=== PATIENT | female | born 1955 | race Caucasian/White ===

== ENCOUNTER → 2017-02-14 | Outpatient (CLI) | payer BC ==
--- NOTE | 2017-02-15 10:04 | ECHOF ---
Referral Reason:I42.2 Hypertrophic Cardiomyopathy MEASUREMENTS -------- HEIGHT: 139.7 cm WEIGHT: 74.8 kg BP: RVIDd: 2.8 cm (< 3.3) IVSd: 1.1 cm (0.6 - 1.1) LVIDd: 4.0 cm (3.9 - 5.3) LVPWd: 0.8 cm (0.6 - 1.1) IVSs: 1.1 cm LVIDs: 2.8 cm LVPWs: 1.6 cm LA Diam: 3.5 cm (2.7 - 3.8) LAESV Index (A-L): 34.07 ml/m Ao Diam: 3.7 cm (2.0 - 3.7) AV Cusp: 2.3 cm (1.5 - 2.6) LA Diam: 3.9 cm (2.7 - 3.8) MV EXCURSION: 19.132 mm (> 18.000) MV EF SLOPE: 62 mm/s (70 - 150) EPSS: 0.2 cm MV E Arias: 0.59 m/s MV DecT: 249 ms MV A Arias: 0.87 m/s MV E/A Ratio: 0.68 RAP: 5.00 mmHg RVSP: 37.45 mmHg FINDINGS -------- Sinus rhythm. This was a technically good study. There is mild concentric left ventricular hypertrophy. Overall left ventricular systolic function is low-normal with, an EF between 50 - 55 %. The right ventricle is normal in size. LA is moderately dilated 34-39 ml/m2 The right atrial size is normal. There is mild aortic valve sclerosis. There is no evidence of aortic regurgitation. Mild mitral annular calcification present. Mild mitral regurgitation is present. Mild tricuspid regurgitation present. There is mild pulmonary hypertension. The right ventricular systolic pressure, as measured by Doppler, is 37.45mmHg. There is no pulmonic regurgitation present. The aortic root size is normal. There is no pericardial effusion. CONCLUSIONS -------- 1. There is mild concentric left ventricular hypertrophy. 2. Overall left ventricular systolic function is low-normal with, an EF between 50 - 55 %. 3. LA is moderately dilated 34-39 ml/m2 4. There is mild aortic valve sclerosis. 5. Mild mitral annular calcification present. 6. Mild mitral regurgitation is present. 7. Mild tricuspid regurgitation present. 8. There is mild pulmonary hypertension. 9. The right ventricular systolic pressure, as measured by Doppler, is 37.45mmHg. TRANSPORTATION OFFICER: Norma Gordillo RDCS
== END | disposition home or self-care (01) ==
LOC: RADECHMAIN 12:43
PROVIDERS: ATTEND Internal Medicine
DX: I08.3 Combined rheumatic disorders of mitral, aortic and tricuspid valves (principal)
CPT/HCPCS: 93306

== ENCOUNTER → 2017-02-15 | Outpatient (CLI) | payer BC ==
--- NOTE | 2017-02-16 11:31 | MM ---
Reason for exam: screening (asymptomatic). Last mammogram was performed 1 year ago. History: Patient history of other cancer. Family history of breast cancer in mother at age 64. Benign stereotactic core biopsy of the left breast, 2006. Benign ultrasound-guided cyst aspiration of the right breast, December 07, 1998. Cyst aspiration of the right breast. Physical Findings: A clinical breast exam by your physician is recommended on an annual basis and results should be correlated with mammographic findings. MG 3D Screening Mammo W/Cad Bilateral CC and MLO view(s) were taken. Prior study comparison: February 11, 2016, mammogram, performed at [facility]. February 10, 2016, mammogram, performed at [facility]. The breast tissue is heterogeneously dense. This may lower the sensitivity of mammography. Previous mammotome biopsy within the left breast. There is chronic nodularity in the right breast. No significant changes when compared with prior studies. ASSESSMENT: Benign, BI-RAD 2 RECOMMENDATION: Routine screening mammogram of both breasts in 1 year.
== END | disposition home or self-care (01) ==
LOC: RADMAMWWP 09:31
PROVIDERS: ATTEND Internal Medicine
DX: Z12.31 Encounter for screening mammogram for malignant neoplasm of breast (principal)
CPT/HCPCS: 77063; G0202

== ENCOUNTER → 2017-02-28 | Outpatient (CLI) | payer BC ==
--- NOTE | 2017-03-01 08:32 | BD ---
EXAMINATION TYPE: MG DEXA axial skeleton. DATE OF EXAM: 02/28/2017 1:24 PM COMPARISON: 2011 CLINICAL HISTORY: post menopausal Height: 5'6 Weight: 169 FRAX RISK QUESTIONS: Alcohol (3 or more units per day): no Family History (Parent hip fracture): no Glucocorticoids (More than 3mos): no (Ex: prednisone, prednisolone, methylprednisolone, dexamethasone, and hydrocortisone). History of Fracture in Adulthood: yes Secondary Osteoporosis: 1. Type 1 Diabetes: no 2. Hyperthyroidism: no 3. Menopause before 45: no 4. Malnutrition: no 5. Chronic liver disease: no Rheumatoid Arthritis: no Current Tobacco Use: no RISK FACTORS HISTORY OF: History of Wrist Fracture: rt When: age 61 Other Fractures since Age 49: When: age 61 Postmenopausal woman: MEDICATIONS: Additional Medications: Additional History: post menopausal EXAM MEASUREMENTS: Bone mineral densitometry was performed using the UniQure System. Bone mineral density as measured about the Lumbar spine is: ----- L1-L4(G/cm2): 0.867 T Score Values are as follows: ----- L2: -2.9 ----- L3: -2.1 ----- L4: -3.2 ----- L1-L4: -2.6 Bone mineral density about the R hip (g/cm2): 0.793 Bone mineral density about the L hip (g/cm2): 0.846 T Score values are as follows: -----R Neck: -1.8 -----L Neck: -1.4 -----R Intertrochanter: -1.3 -----L Intertrochanter: -1.0 IMPRESSION: Osteoporosis (T Score less than -2.5) as noted by T Score values at the:L1-L4 There is increased fracture risk and therapy is usually indicated based on age. Re-Screen 1-2 years. NOTE: T-SCORE=SD OF THE YOUNG ADULT MEAN.
== END | disposition home or self-care (01) ==
LOC: RADBDWWP 13:06
PROVIDERS: ATTEND Obstetrics & Gynecology
DX: Z78.0 Asymptomatic menopausal state (principal); M81.0 Age-related osteoporosis without current pathological fracture
CPT/HCPCS: 77080

== ENCOUNTER → 2018-03-15 | Outpatient (CLI) | payer BC ==
--- NOTE | 2018-03-19 08:09 | MM ---
Reason for exam: screening (asymptomatic). Last mammogram was performed 1 year and 1 month ago. History: Patient history of other cancer. Family history of breast cancer in mother at age 64. Benign stereotactic core biopsy of the left breast, 2006. Benign ultrasound-guided cyst aspiration of the right breast, December 07, 1998. Cyst aspiration of the right breast. Physical Findings: A clinical breast exam by your physician is recommended on an annual basis and results should be correlated with mammographic findings. MG 3D Screening Mammo W/Cad Bilateral CC and MLO view(s) were taken. Prior study comparison: February 15, 2017, bilateral MG 3d screening mammo w/cad. February 11, 2016, mammogram, performed at [facility]. The breast tissue is heterogeneously dense. This may lower the sensitivity of mammography. There are typically benign round, vascular calcifications in both breasts. Previous mammotome biopsy in the left breast. There is no discrete abnormality. ASSESSMENT: Benign, BI-RAD 2 RECOMMENDATION: Routine screening mammogram of both breasts in 1 year.
== END | disposition home or self-care (01) ==
LOC: RADMAMWWP 13:20
PROVIDERS: ATTEND Internal Medicine
DX: Z12.31 Encounter for screening mammogram for malignant neoplasm of breast (principal)
CPT/HCPCS: 77063; 77067

== ENCOUNTER 2018-10-24 08:29 | Day surgery (SDC) | payer BC ==
[2018-10-19 15:57] VITALS: BMI 27.4
--- NOTE | 2018-10-24 07:44 | P.GSHP ---
History of Present Illness H&P Date: 10/24/18 CHIEF COMPLAINT: Colon screen HISTORY OF PRESENT ILLNESS: The patient is a 63-year-old female who presents for colon screen. Lower endoscopy was offered for further evaluation and management. PAST MEDICAL HISTORY: Please see list. PAST SURGICAL HISTORY: Please see list. MEDICATIONS: Please see list. ALLERGIES: Please see list. SOCIAL HISTORY: No illicit drug use FAMILY HISTORY: No reports of Crohn disease or ulcerative colitis. REVIEW OF ORGAN SYSTEMS: CONSTITUTIONAL: No reports of fevers or chills. PHYSICAL EXAM: VITAL SIGNS: Stable GENERAL: Well-developed pleasant in no acute distress. HEENT: No scleral icterus. Extraocular movements grossly intact. Moist buccal mucosa. NECK: Supple without lymphadenopathy. CHEST: Unlabored respirations. Equal bilateral excursions. CARDIOVASCULAR: Regular rate and rhythm. Distal 2+ pulses. ABDOMEN: Soft, nontender, nondistended. MUSCULOSKELETAL: No clubbing, cyanosis, or edema. ASSESSMENT: 1. Colon screen. PLAN: 1. Recommend proceeding with a lower endoscopy Past Medical History Past Medical History: Cancer Additional Past Medical History / Comment(s): hx skin ca, hx polyps, diverticuli History of Any Multi-Drug Resistant Organisms: None Reported Additional Past Surgical History / Comment(s): benign lung bx, colonoscopy Past Anesthesia/Blood Transfusion Reactions: No Reported Reaction Smoking Status: Never smoker - Past Family History Mother Family Medical History: Cancer Additional Family Medical History / Comment(s): colon Medications and Allergies Home Medications Medication Instructions Recorded Confirmed Type No Known Home Medications 10/19/18 10/19/18 History Allergies Allergy/AdvReac Type Severity Reaction Status Date / Time No Known Allergies Allergy Verified 10/19/18 15:51
[~2018-10-24 08:29] MED LIST: LACTATED RINGERS 1,000 ML IV SCH; LIDOCAINE 1% 20 ML VIAL (10MG/ML) FOR IV START INTRADERMA PRN
[2018-10-24 09:44] VITALS: RESP 16; TEMP 98.2
[2018-10-24] MEDS ORDERED: PROPOFOL 10 MG/ML 20 ML VIAL IV ONE (10:18)
[2018-10-24 11:11] VITALS: BP 126/79; PULSE 70
--- NOTE | 2018-10-24 12:05 | P.PCN ---
Date of Procedure: 10/24/18 Description of Procedure: PREOPERATIVE DIAGNOSIS: Personal history of colon polyps Family history colon cancer, father POSTOPERATIVE DIAGNOSIS: Personal history of colon polyps Family history colon cancer, father External hemorrhoids Sigmoid diverticulosis, moderate OPERATION: Colonoscopy to the ileocecal valve and appendiceal orifice. Colonoscopy with multiple hot snare polypectomies Colonoscopy with multiple cold forceps biopsies. SURGEON: Kiara Kovacs MD. ANESTHESIA: MAC. INDICATIONS: The patient is a 63-year-old female who presents for colonoscopy surveillance. Last colonoscopy was 5 years ago with history of polyps and family history of colon cancer. Benefits and risks were described and informed consent was obtained. DESCRIPTION OF PROCEDURE: The patient had undergone Gatorade, MiraLAX and Dulcolax prep. She had been brought into the operating room and laid in the left lateral decubitus position. After adequate intravenous sedation, the rectum was examined with 2% lidocaine jelly. External hemorrhoids were encountered. The rectal tone was within normal limits. No lesions were palpated in the rectal vault. An Olympus colonoscope was advanced until the ileocecal valve and appendiceal orifice were clearly viewed. The prep was excellent with visualization of the mucosal folds. Mild narrowing was found along the sigmoid colon, 20 cm from the anal verge due to sigmoid diverticulosis. Abdominal wall pressure was used to advance the scope. The scope was removed with visualization of each mucosal fold. Scattered diverticulosis was encountered. Multiple colonic polyps were found and cold forcep biopsy or snare polypectomy. No evidence of focal colitis was found. Retroflexion of the scope demonstrated grade 1 internal hemorrhoids without active bleeding or inflammation. The colon was desufflated. The patient had tolerated the procedure well. Withdrawal time was over 6 minutes. FINDINGS: Internal hemorrhoids, grade 1 External hemorrhoids, grade 2. No arteriovenous malformations. Sigmoid diverticulosis with narrowing at 20 cm from the anal verge Pandiverticulosis No focal colitis. Removal of 3 polyps: - Snare polypectomy at 40 cm from the anal verge, 5 mm polyp, descending colon - Cold forceps biopsy at 50 cm from the anal verge, 4 mm polyp, ascending colon - Cold forceps biopsy at hepatic flexure, 4 mm polyp. RECOMMENDATIONS: Given severity of tubular adenomas, recommend repeat colonoscopy 3 years, 2020 Plan - Discharge Summary New Discharge Prescriptions: No Action No Known Home Medications Discharge Medication List No Known Home Medications 10/19/18 [History] Follow up Appointment(s)/Referral(s): Kiara Kovacs MD [STAFF PHYSICIAN] - As Needed Patient Instructions/Handouts: *Surgery [facility] - (Anesthesia) Discharge Instructions Outpatient Surgery, Diverticulosis (ED), Colorectal Polyps (GEN), Diverticulosis Diet (GEN) Activity/Diet/Wound Care/Special Instructions: Repeat colonoscopy 3 years, 2020 Discharge Disposition: HOME SELF-CARE
== END 2018-10-24 11:28 | disposition home or self-care (01) ==
LOC: ORWHC2ENDO 08:29
PROVIDERS: ATTEND Surgery Plastic and Reconstructive Surgery
DX: Z12.11 Encounter for screening for malignant neoplasm of colon (principal); D12.2 Benign neoplasm of ascending colon; D12.4 Benign neoplasm of descending colon; D12.3 Benign neoplasm of transverse colon; K64.4 Residual hemorrhoidal skin tags; K64.0 First degree hemorrhoids; K57.30 Diverticulosis of large intestine without perforation or abscess without bleeding; Z86.010 Personal history of colon polyps; Z80.0 Family history of malignant neoplasm of digestive organs; Z85.828 Personal history of other malignant neoplasm of skin
CPT/HCPCS: 88305; 45380; 45385; J2704

== ENCOUNTER → 2019-03-26 | Outpatient (CLI) | payer BC ==
--- NOTE | 2019-03-27 09:40 | MM ---
Reason for exam: screening (asymptomatic). Last mammogram was performed 1 year ago. History: Patient is postmenopausal and has history of other cancer at age 41. Family history of breast cancer in mother at age 64. Benign stereotactic core biopsy of the left breast, 2006. Benign ultrasound-guided cyst aspiration of the right breast, December 07, 1998. Cyst aspiration of the right breast. Physical Findings: A clinical breast exam by your physician is recommended on an annual basis and results should be correlated with mammographic findings. MG 3D Screening Mammo W/Cad Bilateral CC and MLO view(s) were taken. Prior study comparison: March 15, 2018, bilateral MG 3d screening mammo w/cad. February 15, 2017, bilateral MG 3d screening mammo w/cad. The breast tissue is heterogeneously dense. This may lower the sensitivity of mammography. There are benign appearing round vascular calcifications bilaterally. Previous mammotome biopsy in the left breast. There is no discrete abnormality. ASSESSMENT: Benign, BI-RAD 2 RECOMMENDATION: Routine screening mammogram of both breasts in 1 year.
== END | disposition home or self-care (01) ==
LOC: RADMAMWWP 16:17
PROVIDERS: ATTEND Obstetrics & Gynecology
DX: Z12.31 Encounter for screening mammogram for malignant neoplasm of breast (principal)
CPT/HCPCS: 77063; 77067

== ENCOUNTER → 2020-05-22 | Outpatient (CLI) | payer MEDICARE, BC ==
--- NOTE | 2020-05-25 08:43 | MM ---
Reason for exam: screening (asymptomatic). Last mammogram was performed 1 year and 2 months ago. History: Patient is postmenopausal and has history of other cancer at age 41. Family history of breast cancer in mother at age 64. Benign stereotactic core biopsy of the left breast, 2006. Benign ultrasound-guided cyst aspiration of the right breast, December 07, 1998. Cyst aspiration of the right breast. Physical Findings: A clinical breast exam by your physician is recommended on an annual basis and results should be correlated with mammographic findings. MG 3D Screening Mammo W/Cad Bilateral CC and MLO view(s) were taken. Prior study comparison: March 26, 2019, bilateral MG 3d screening mammo w/cad. March 15, 2018, bilateral MG 3d screening mammo w/cad. The breast tissue is heterogeneously dense. This may lower the sensitivity of mammography. Stable benign calcifications. There is no discrete abnormality. No significant changes when compared with prior studies. ASSESSMENT: Benign, BI-RAD 2 RECOMMENDATION: Routine screening mammogram of both breasts in 1 year.
== END | disposition home or self-care (01) ==
LOC: RADMAMWWP 07:32
PROVIDERS: ATTEND Internal Medicine
DX: Z12.31 Encounter for screening mammogram for malignant neoplasm of breast (principal)
CPT/HCPCS: 77063; 77067

== ENCOUNTER → 2021-08-11 | Outpatient (CLI) | payer MEDICARE, BC ==
--- NOTE | 2021-08-16 10:17 | MM ---
Reason for exam: screening (asymptomatic). Last mammogram was performed 1 year and 3 months ago. History: Patient is postmenopausal and has history of other cancer at age 41. Family history of breast cancer in mother at age 64. Benign stereotactic core biopsy of the left breast, 2006. Benign ultrasound-guided cyst aspiration of the right breast, December 07, 1998. Cyst aspiration of the right breast. Physical Findings: A clinical breast exam by your physician is recommended on an annual basis and results should be correlated with mammographic findings. MG 3D Screening Mammo W/Cad Bilateral CC and MLO view(s) were taken. Prior study comparison: May 22, 2020, bilateral MG 3d screening mammo w/cad. March 26, 2019, bilateral MG 3d screening mammo w/cad. March 15, 2018, bilateral MG 3d screening mammo w/cad. The breast tissue is heterogeneously dense. This may lower the sensitivity of mammography. Previous mammotome biopsy in the left breast. Benign vascular calcifications. Left posterior upper outer quadrant focal asymmetry is more defined. ASSESSMENT: Incomplete: need additional imaging evaluation, BI-RAD 0 RECOMMENDATION: Special view mammogram of the left breast. If lesion persists on supplemental views, image directed ultrasound is recommended. [facility] will attempt to contact patient to return for supplemental views and ultrasound if indicated.
== END | disposition home or self-care (01) ==
LOC: RADMAMWWP 15:46
PROVIDERS: ATTEND Internal Medicine
DX: Z12.31 Encounter for screening mammogram for malignant neoplasm of breast (principal); Z80.3 Family history of malignant neoplasm of breast; Z78.0 Asymptomatic menopausal state
CPT/HCPCS: 77063; 77067

== ENCOUNTER → 2021-08-24 | Outpatient (CLI) | payer MEDICARE, BC ==
--- NOTE | 2021-08-25 08:37 | MM ---
Reason for exam: additional evaluation requested from abnormal screening. Last mammogram was performed less than 1 month ago. History: Patient is postmenopausal and has history of other cancer at age 41. Family history of breast cancer in mother at age 64. Benign stereotactic core biopsy of the left breast, 2006. Benign ultrasound-guided cyst aspiration of the right breast, December 07, 1998. Cyst aspiration of the right breast. Physical Findings: Nurse did not find any significant physical abnormalities on exam. MG 3D Work Up W/Cad LT Spot compression CC, spot compression MLO, LM, and XCCL view(s) were taken of the left breast. Prior study comparison: August 11, 2021, bilateral MG 3d screening mammo w/cad. May 22, 2020, bilateral MG 3d screening mammo w/cad. The breast tissue is heterogeneously dense. This may lower the sensitivity of mammography. Previous mammotome biopsy in the left breast. Asymmetric breast tissue left posterior upper outer quadrant, stable. There is no discrete abnormality. These results were verbally communicated with the patient and result sheet given to the patient on 08/24/21. ASSESSMENT: Benign, BI-RAD 2 RECOMMENDATION: Return to routine screening mammogram schedule for both breasts.
== END | disposition home or self-care (01) ==
LOC: RADMAMWWP 13:36
PROVIDERS: ATTEND Internal Medicine
DX: N64.89 Other specified disorders of breast (principal); Z85.89 Personal history of malignant neoplasm of other organs and systems; Z80.3 Family history of malignant neoplasm of breast
CPT/HCPCS: 77065; G0279; 77061

== ENCOUNTER → 2022-08-23 | Outpatient (CLI) | payer MEDICARE, BC ==
--- NOTE | 2022-08-24 10:01 | MM ---
Reason for Exam: Screening (asymptomatic). Last mammogram was performed 1 year(s) and 1 month(s) ago. Patient History: Menarche at age 12. First Full-Term at age 20. Postmenopausal. Other cancer, age 41. Cyst Aspiration on the Right side. 2006, Benign Stereotactic Core Biopsy on the left side. 12/07/1998, Benign Ultrasound-Guided Cyst Aspiration on the right side. Mother had breast cancer, age 64. Risk Values: Zoila 5 year model risk: 3.8%. NCI Lifetime model risk: 12.7%. Prior Study Comparison: 05/22/2020 Bilateral Screening Mammogram, [facility]. 08/11/2021 Bilateral Screening Mammogram, [facility]. 08/24/2021 Left Diagnostic Mammogram, [facility]. Tissue Density: The breast tissue is heterogeneously dense. This may lower the sensitivity of mammography. Findings: Analyzed By CAD. There is no suspicious group of microcalcifications or new suspicious mass in either breast. Previous biopsy clip marker noted on the left. Benign-appearing calcifications are seen. Overall Assessment: Benign, BI-RAD 2 Management: Screening Mammogram of both breasts in 1 year. A clinical breast exam by your physician is recommended on an annual basis and results should be correlated with mammographic findings. Electronically signed and approved by: Geovanny Mg M.D. Radiologis
== END | disposition home or self-care (01) ==
LOC: RADMAMWWP 11:00
PROVIDERS: ATTEND Internal Medicine
DX: Z12.31 Encounter for screening mammogram for malignant neoplasm of breast (principal); Z78.0 Asymptomatic menopausal state; Z80.3 Family history of malignant neoplasm of breast
CPT/HCPCS: 77063; 77067

== ENCOUNTER → 2023-09-19 | Outpatient (CLI) | payer MEDICARE, BC | END | disposition home or self-care (01) | LOC: LABWHC1 13:08 | PROVIDERS: ATTEND Orthopaedic Surgery | DX: S92.352A Displaced fracture of fifth metatarsal bone, left foot, initial encounter for closed fracture (principal); X58.XXXA Exposure to other specified factors, initial encounter | CPT/HCPCS: 36415; 82306 ==

== ENCOUNTER → 2023-11-08 | Outpatient (CLI) | payer MEDICARE, BC ==
--- NOTE | 2023-11-08 09:28 | MM ---
Reason for Exam: Screening (asymptomatic). Last mammogram was performed 1 year(s) and 2 month(s) ago. Patient History: Menarche at age 12. First Full-Term at age 20. Postmenopausal. Other cancer, age 41. Cyst Aspiration on the Right side. 2006, Benign Stereotactic Core Biopsy on the left side. 12/07/1998, Benign Ultrasound-Guided Cyst Aspiration on the right side. Mother had breast cancer, age 64. Risk Values: Zoila 5 year model risk: 3.9%. NCI Lifetime model risk: 11.6%. Prior Study Comparison: 08/11/2021 Bilateral Screening Mammogram, [facility]. 08/24/2021 Left Diagnostic Mammogram, [facility]. 08/23/2022 Bilateral MG 3D screening mammo w/cad, [facility]. Tissue Density: The breast tissue is heterogeneously dense. This may lower the sensitivity of mammography. Findings: Analyzed By CAD. Left breast biopsy clip. There is no suspicious group of microcalcifications or new suspicious mass. Benign-appearing calcifications bilaterally. Overall Assessment: Benign, BI-RAD 2 Management: Screening Mammogram of both breasts in [address] [facility] will attempt to contact patient to return for supplemental views and ultrasound if indicated. Patient should continue monthly self-breast exams. A clinical breast exam by your physician is recommended on an annual basis. This exam should not preclude additional follow-up of suspicious palpable abnormalities. Note on Zoila scores and lifetime risk: 1. A Zoila score greater than 3% is considered moderate risk. If this is the case, consider specialist referral to assess eligibility for a risk reducing agent. 2. If overall lifetime risk for the development of breast cancer is 20% or higher, the patient may qualify for future screening with alternating mammogram and breast MRI. Electronically signed and approved by: Juan Ponce DO
== END | disposition home or self-care (01) ==
LOC: RADMAMWWP 07:13
PROVIDERS: ATTEND Internal Medicine
DX: Z12.31 Encounter for screening mammogram for malignant neoplasm of breast (principal); Z80.3 Family history of malignant neoplasm of breast; Z78.0 Asymptomatic menopausal state
CPT/HCPCS: 77063; 77067

== ENCOUNTER 2024-04-03 11:35 | Day surgery (SDC) | payer MEDICARE, BC ==
[~2024-04-03 11:35] MED LIST changes: -LACTATED RINGERS 1,000 ML IV SCH; +LIDOCAINE 1% (10MG/ML) FOR IV START INTRADERMA PRN; -LIDOCAINE 1% 20 ML VIAL (10MG/ML) FOR IV START INTRADERMA PRN
[2024-04-03] MEDS: LACTATED RINGERS 1,000 ML IV SCH (12:16)
[2024-04-03 12:35] VITALS: TEMP 98.4
[2024-04-03] MEDS ORDERED: PROPOFOL 10 MG/ML 20 ML VIAL IV ONE (13:20)
--- NOTE | 2024-04-03 13:45 | P.PCN ---
Date of Procedure: 04/03/24 Procedure(s) Performed: BRIEF HISTORY: Patient is a 68-year-old pleasant white female scheduled for an elective colonoscopy as a part of evaluation by history of colon polyps. Also has family history of colon cancer diagnosed in her father. PROCEDURE PERFORMED: Colonoscopy. PREOPERATIVE DIAGNOSIS: History of colon polyps and family history of colon cancer. IV sedation per Anesthesia. PROCEDURE: After informed consent was obtained, the patient, was brought into the endoscopy unit. IV sedation was administered by Anesthesia under continuous monitoring. Digital rectal examination was normal. Initially the Olympus CF-160 flexible video colonoscope was then inserted in the rectum, gradually advanced into the cecum without any difficulty. Careful examination was performed as the scope was gradually being withdrawn. Ileocecal valve and the appendiceal orifice were visualized and appeared normal. Prep was excellent. Mucosa of the cecum, ascending colon, transverse colon, descending colon, sigmoid colon, and rectum appeared normal. Scattered sigmoid diverticulosis retroflexion was performed in the rectum and no lesions were seen. The patient tolerated the procedure well. IMPRESSION: Normal-appearing colon from rectum to cecum no evidence of colitis or colorectal neoplasia Sigmoid diverticulosis. RECOMMENDATIONS: Findings of this examination were discussed with the patient as well as her family. She was advised to have a repeat Colonoscopy in 5 years because of the family history of colon cancer..
[2024-04-03 14:36] VITALS: BP 121/68; PULSE 84
[2024-04-03 14:37] VITALS: RESP 17
== END 2024-04-03 14:32 | disposition home or self-care (01) ==
LOC: ORWHC2ENDO 11:35
PROVIDERS: ATTEND Internal Medicine Gastroenterology
DX: Z12.11 Encounter for screening for malignant neoplasm of colon (principal); K57.30 Diverticulosis of large intestine without perforation or abscess without bleeding; Z86.010 Personal history of colon polyps; Z80.0 Family history of malignant neoplasm of digestive organs; Z98.890 Other specified postprocedural states; Z79.899 Other long term (current) drug therapy